=== PATIENT | female | born 2000 | race Hispanic/Latino ===

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

== ENCOUNTER 2018-05-11 15:45 | Emergency (ER) | payer OTHER ==
[2018-05-11 17:34] LABS: BASO % 0.4 % (0.0-1.0); EOS # 0.3 10^3/uL (0.0-0.50); EOS % 3.8 % (0.0-3.0); HEMATOCRIT 42.6 % (36.0-47.0); HEMOGLOBIN 13.9 g/dl (12.0-15.5); IMMATURE GRANULOCYTE % 0.3 % (0-3.0); LYMPH # 2.6 10^3/uL (1.5-6.5); LYMPH % 35.8 % (24.0-44.0); MEAN CORPUSCULAR HEMOGLOBIN 29.5 pg (27.0-33.0); MEAN CORPUSCULAR HGB CONC 32.6 g/dl (32.0-36.5); MEAN CORPUSCULAR VOLUME 90.4 fl (80.0-96.0); MONO # 0.4 10^3/uL (0.0-0.8); MONO % 5.7 % (0.0-5.0); PLATELET COUNT, AUTOMATED 405 10^3/uL (150-450); RED BLOOD COUNT 4.71 10^6/uL (4.00-5.40); WHITE BLOOD COUNT 7.4 10^3/uL (4.0-10.0)
[2018-05-11 17:56] LABS: ALBUMIN 4.2 GM/DL (3.2-5.2); ALBUMIN/GLOBULIN RATIO 1.27 (1.00-1.93); ALKALINE PHOSPHATASE 91 U/L (45-117); ALT/SGPT 21 U/L (12-78); ANION GAP 7 MEQ/L (8-16); AST/SGOT 11 U/L (7-37); BILIRUBIN,DIRECT 0.2 MG/DL (0.0-0.2); BILIRUBIN,TOTAL 0.4 MG/DL (0.2-1.0); BLOOD UREA NITROGEN 11 MG/DL (7-18); CALCIUM LEVEL 9.6 MG/DL (8.5-10.1); CARBON DIOXIDE LEVEL 28 MEQ/L (21-32); CHLORIDE LEVEL 105 MEQ/L (98-107); CPK CREATINE PHOSPHOKINASE 103 U/L (26-192); CREATININE FOR GFR 0.66 MG/DL (0.55-1.30); FREE T4 0.88 NG/DL (0.78-1.33); GLUCOSE, FASTING 82 MG/DL (70-100); LIPASE 145 U/L (73-393); MB/CK RELATIVE INDEX 0.97 (< OR =4); POTASSIUM SERUM 4.6 MEQ/L (3.5-5.1); SODIUM LEVEL 140 MEQ/L (136-145); TOTAL PROTEIN 7.5 GM/DL (6.4-8.2); TROPONIN I < 0.02 NG/ML (< 0.10)
== END 2018-05-11 18:26 | disposition home or self-care (01) ==
LOC: M ED 15:45
DX: M94.0 Chondrocostal junction syndrome [Tietze] (principal)
CPT/HCPCS: 71046

== ENCOUNTER 2018-08-03 14:06 | Emergency (ER) | payer OTHER ==
[~2018-08-03] VITALS: Ht 127 cm; Wt 62.7 kg
[~2018-08-03 14:06] MED LIST: ACET1TAB55 PO; AMOX500C; HYDROCODONE-ACETAMIN; IBUP-1022; IBUP200T45 PO; IBUP80TA PO; NAPR-885; PEPC1TAB5 PO; PERI12LIQ; ZOFR4TAB14 PO; [UNRECOGNIZED DRUG - CODE] PO
[2018-08-03 15:16] LABS: URINE PREG TEST NEGATIVE (NEGATIVE)
[2018-08-03] MEDS ORDERED: CIPR-249 PO (16:07)
[2018-08-03] MEDS ORDERED: PYRI1TAB5 PO (16:07)
[2018-08-03 16:19] VITALS: BP 104/63
[2018-08-03 16:33] LABS: HEPATITIS B SURFACE ANTIBODY POSITIVE (POSITIVE); HEPATITIS B SURFACE ANTIGEN NEGATIVE (NEGATIVE); HEPATITIS C VIRUS ABY INDEX 0.1 INDEX (<0.8); HIV 1&2 SCREEN CENTAUR NEGATIVE (NEGATIVE)
[2018-08-03 17:20] LABS: CHLAMYDIA DNA AMPLIFICATION NEGATIVE (NEGATIVE); GC DNA AMPLIFICATION NEGATIVE (NEGATIVE)
== END 2018-08-03 16:21 | disposition home or self-care (01) ==
LOC: M ED 14:06
DX: N30.90 Cystitis, unspecified without hematuria (principal); F33.9 Major depressive disorder, recurrent, unspecified

== ENCOUNTER 2018-08-30 21:29 | Emergency (ER) | payer OTHER ==
[~2018-08-30] VITALS: Ht 147.3 cm; Wt 62.3 kg
[~2018-08-30 21:29] MED LIST changes: +CIPR-249 PO; +PYRI1TAB5 PO
[2018-08-30 22:25] LABS: URINE PREG TEST NEGATIVE (NEGATIVE)
[2018-08-30 23:10] LABS: BASO % 0.4 % (0.0-1.0); EOS # 0.3 10^3/uL (0.0-0.50); EOS % 3.3 % (0.0-3.0); HEMATOCRIT 39.7 % (36.0-47.0); HEMOGLOBIN 13.1 g/dl (12.0-15.5); LYMPH # 2.9 10^3/uL (1.5-6.5); LYMPH % 29.2 % (24.0-44.0); MEAN CORPUSCULAR HEMOGLOBIN 29.7 pg (27.0-33.0); MONO # 0.8 10^3/uL (0.0-0.8); MONO % 8.2 % (0.0-5.0); NEUTROPHILS # 5.9 10^3/uL (1.8-7.7); NEUTROPHILS % 58.7 % (36.0-66.0); PLATELET COUNT, AUTOMATED 353 10^3/uL (150-450); RED BLOOD COUNT 4.41 10^6/uL (4.00-5.40)
[2018-08-30 23:35] LABS: ALBUMIN 3.7 GM/DL (3.2-5.2); ALT/SGPT 20 U/L (12-78); BILIRUBIN,DIRECT < 0.1 MG/DL (0.0-0.2); BILIRUBIN,TOTAL 0.2 MG/DL (0.2-1.0); BLOOD UREA NITROGEN 13 MG/DL (7-18); CALCIUM LEVEL 8.6 MG/DL (8.5-10.1); CARBON DIOXIDE LEVEL 28 MEQ/L (21-32); CHLORIDE LEVEL 104 MEQ/L (98-107); CREATININE FOR GFR 0.78 MG/DL (0.55-1.30); GLUCOSE, FASTING 78 MG/DL (70-100); LIPASE 208 U/L (73-393); POTASSIUM SERUM 3.9 MEQ/L (3.5-5.1); SODIUM LEVEL 139 MEQ/L (136-145); TOTAL PROTEIN 6.9 GM/DL (6.4-8.2)
[2018-08-31] MEDS: GASTROGRAFIN SOLUTION 30ML PO SCH ×2 (01:45→02:15)
--- NOTE | 2018-08-31 03:02 | REPVR ---
EXAM: CT Abdomen and Pelvis Without Contrast EXAM DATE/TIME: 08/31/2018 1:43 AM CLINICAL HISTORY: 18 years old, female; Abdominal pain; Flank; Left; Additional info: Left colic TECHNIQUE: Axial computed tomography images of the abdomen and pelvis without contrast. All CT scans at this facility use at least one of these dose optimization techniques: automated exposure control; mA and/or kV adjustment per patient size (includes targeted exams where dose is matched to clinical indication); or iterative reconstruction. Coronal and sagittal reformatted images were created and reviewed. COMPARISON: CT ABD/PEL W/IV ORAL CONTRAST 12/08/2017 4:54 AM US PELVIC NON-OB COMPLETE 12/08/2017 3:29:34 AM FINDINGS: Lower thorax: Unremarkable. ABDOMEN: Liver: Unremarkable. No liver lesion is seen. The contour of the liver is smooth. No hepatomegaly is noted. Gallbladder and bile ducts: No calcifications are seen in the gallbladder to suggest calculi. No gallbladder wall thickening, pericholecystic fluid, or pericholecystic inflammatory changes are identified. No dilation of the intrahepatic or extrahepatic bile ducts is noted. Pancreas: Unremarkable. No ductal dilation. Spleen: Unremarkable. No splenomegaly. Adrenals: Normal. No mass. Kidneys and ureters: The kidneys are unremarkable. No renal lesion is identified. No calculi are seen in the kidneys or ureters. There is no hydronephrosis or hydroureter. Stomach and bowel: There is no evidence for a bowel obstruction, diverticulosis, diverticulitis, colitis, pneumatosis intestinalis, intussusception, volvulus, or perforated viscus. Appendix: There are no findings to suggest acute appendicitis. PELVIS: Bladder: The partially distended urinary bladder is unremarkable. No stones or masses are seen in the bladder. Reproductive: The anteverted uterus and ovaries are unremarkable. ABDOMEN and PELVIS: Intraperitoneal space: There is a small amount of free fluid in the cul-de-sac. No intra-abdominal abscess or intraperitoneal free air is noted. Bones/joints: The imaged bony structures are intact. There is no suspicious osteolytic or osteoblastic lesion. Incidental note is made of a small bone island in the left femoral head, which is unchanged compared to the prior CT scan on 12/08/2017. Soft tissues: Unremarkable. Vasculature: No abdominal aortic aneurysm. Lymph nodes: Normal. No enlarged lymph nodes. IMPRESSION: 1. No acute findings in the abdomen or pelvis. No stones in the kidneys, ureters, or urinary bladder. No hydronephrosis or hydroureter. 2. Small amount of free fluid in the cul-de-sac. Electronically signed by: Vaibhav Soto On 08/31/2018 03:01:54 AM
[2018-08-31] MEDS ORDERED: AZITHROMYCIN 250 MG TAB PO ONE (03:30)
[2018-08-31] MEDS ORDERED: cefTRIAXone SOD 1 GM VIAL (J0696) IM ONE (03:30)
[2018-08-31] MEDS ORDERED: LIDOCAINE 1% SDV 5 ML VIAL DILUENT ONE (03:30)
[2018-08-31 03:37] VITALS: BP 92/50
[2018-08-31] MEDS ORDERED: NORCO 5/325MG TABLET (BULK FOR ED) PO ONE (03:45)
[2018-08-31 04:44] LABS: CHLAMYDIA DNA AMPLIFICATION NEGATIVE (NEGATIVE); GC DNA AMPLIFICATION NEGATIVE (NEGATIVE)
== END 2018-08-31 04:07 | disposition home or self-care (01) ==
LOC: M ED 21:29
DX: N70.91 Salpingitis, unspecified (principal)
CPT/HCPCS: 36415; 74176; 80048; 80076; 81001; 83690; 84703; 85025; 87210; 87491; 87591; 96372; 99284; J0696; Q9963

== ENCOUNTER 2018-09-21 17:37 | Emergency (ER) | payer OTHER ==
[~2018-09-21] VITALS: Ht 147.3 cm; Wt 62.7 kg
[2018-09-21 17:38] VITALS: BP 120/62
[2018-09-21] MEDS ORDERED: PRENTAB56 (17:52)
[2018-09-21] MEDS ORDERED: raNITIdine SYRUP 150 MG/10 ML UDC PO ONE (19:15)
[2018-09-21] MEDS ORDERED: METOCLOPRAMIDE 10 MG TAB PO ONE (19:15)
[2018-09-21 19:26] LABS: BASO % 0.2 % (0.0-1.0); EOS # 0.2 10^3/uL (0.0-0.50); EOS % 2.4 % (0.0-3.0); HEMATOCRIT 39.9 % (36.0-47.0); HEMOGLOBIN 13.3 g/dl (12.0-15.5); LYMPH % 30.1 % (24.0-44.0); MEAN CORPUSCULAR HEMOGLOBIN 29.7 pg (27.0-33.0); MEAN CORPUSCULAR HGB CONC 33.3 g/dl (32.0-36.5); MEAN CORPUSCULAR VOLUME 89.1 fl (80.0-96.0); MONO # 0.7 10^3/uL (0.0-0.8); MONO % 7.1 % (0.0-5.0); NEUTROPHILS # 5.9 10^3/uL (1.8-7.7); PLATELET COUNT, AUTOMATED 387 10^3/uL (150-450); RED BLOOD COUNT 4.48 10^6/uL (4.00-5.40); WHITE BLOOD COUNT 9.9 10^3/uL (4.0-10.0)
[2018-09-21] MEDS ORDERED: RANI15TA PO (20:19)
[2018-09-21 21:32] LABS: CHLAMYDIA DNA AMPLIFICATION NEGATIVE (NEGATIVE); GC DNA AMPLIFICATION NEGATIVE (NEGATIVE)
== END 2018-09-21 20:26 | disposition home or self-care (01) ==
LOC: M ED 17:37
DX: O26.891 Other specified pregnancy related conditions, first trimester (principal); R10.2 Pelvic and perineal pain; O99.511 Diseases of the respiratory system complicating pregnancy, first trimester; J45.909 Unspecified asthma, uncomplicated; Z3A.01 Less than 8 weeks gestation of pregnancy

== ENCOUNTER 2018-10-18 20:53 | Emergency (ER) | payer OTHER ==
[~2018-10-18] VITALS: Ht 147.3 cm; Wt 64.1 kg
[~2018-10-18 20:53] MED LIST changes: +PRENTAB56; +RANI15TA PO
[2018-10-19] MEDS ORDERED: RHOGAM 300 MCG (1500 IU) INJ (J2790) IM ONE (00:15)
[2018-10-19 00:54] VITALS: BP 116/70
--- NOTE | 2018-10-19 01:18 | REPVR ---
EXAM: US Duplex Artery and Vein of the Reproductive Organs. Complete Ovaries EXAM DATE/TIME: 10/18/2018 11:53 PM CLINICAL HISTORY: 18 years old, female; Signs and symptoms; Lmp or gestational age (in weeks): 8 w 6d; Antepartum complications; Bleeding; ; Additional info: Vaginal bleeding TECHNIQUE: Imaging protocol: Real-time duplex ultrasound scan of the arterial and venous flow with color Doppler flow and spectral waveform analysis. Complete duplex exam focused on the ovaries. Duplex exam was added to evaluate for ovarian torsion or mass. COMPARISON: No relevant prior studies available. FINDINGS: Right adnexa: The arterial and venous color Doppler flow and spectral waveforms within the right ovary are within normal limits. No right ovarian torsion. Left adnexa: The arterial and venous color Doppler flow and spectral waveforms within the left ovary are within normal limits. No left ovarian torsion. IMPRESSION: Normal ovarian arterial and venous vascular flow. No evidence ovarian torsion. EXAM: US First Trimester, Transabdominal and US , Transvaginal EXAM DATE/TIME: 10/18/2018 11:53 PM CLINICAL HISTORY: 18 years old, female; Signs and symptoms; Lmp or gestational age (in weeks): 8 w 6d; Antepartum complications; Bleeding; ; Additional info: Vaginal bleeding TECHNIQUE: Imaging protocol: Real-time transabdominal obstetrical ultrasound of the maternal pelvis and a first trimester , less than 14 weeks 0 days, with image documentation. Transvaginal imaging was used for better evaluation of the fetus and adnexa. COMPARISON: No relevant prior studies available. FINDINGS: Last menstrual period: 08/17/2018 GESTATION: Gestation: There is a single intrauterine gestation. The yolk sac was not visualized from the images obtained. Heart rate: 180 beats per minute Placenta: Unremarkable. No subchorionic bleed. Amniotic fluid: Amniotic and chorionic fluid are normal for gestational age. BIOMETRY: Estimated gestational age: 8 weeks 5 days [place]-Rump length: 2.07 cm Estimated due date: 05/25/2019 MATERNAL: Uterus: The uterus is anteverted. No myometrial mass is seen. Cervix: The cervix is closed. Right adnexa: The right ovary is normal in appearance and measures 2.9 cm x 1.6 cm x 2.6 cm. No right ovarian cyst or right adnexal mass is noted. The arterial and venous color Doppler flow and spectral waveforms within the right ovary are within normal limits, without evidence for right ovarian torsion. Left adnexa: The left ovary is normal in appearance and measures 3 cm x 2.4 cm x 2.5 cm. No left ovarian cyst or left adnexal mass is noted. The arterial and venous color Doppler flow and spectral waveforms within the left ovary are within normal limits, without evidence for left ovarian torsion. Intraperitoneal: No free fluid is seen from the images obtained. IMPRESSION: 1. Single viable intrauterine with an estimated gestational age of 8 weeks 5 days and estimated due date on 05/25/2019. A second trimester obstetrical ultrasound is recommended at 19-20 weeks gestation for a detailed anatomical survey. 2. No subchronic hemorrhage or acute sonographic findings in the pelvis. Electronically signed by: Vaibhav Soto On 10/19/2018 01:18:16 AM
[2018-10-19 02:02] LABS: CHLAMYDIA DNA AMPLIFICATION NEGATIVE (NEGATIVE); GC DNA AMPLIFICATION NEGATIVE (NEGATIVE)
== END 2018-10-19 00:55 | disposition home or self-care (01) ==
LOC: M ED 20:53
DX: O99.89 Other specified diseases and conditions complicating pregnancy, childbirth and the puerperium (principal); N93.0 Postcoital and contact bleeding; O20.0 Threatened abortion; O99.511 Diseases of the respiratory system complicating pregnancy, first trimester; Z3A.08 8 weeks gestation of pregnancy; Z79.899 Other long term (current) drug therapy
CPT/HCPCS: 76801; 76817; 84702; 86850; 86901; 87210; 87491; 87591; 93976; 96372; 99284; J2790

== ENCOUNTER 2019-01-30 18:05 | Outpatient (CLI) | payer OTHER ==
[~2019-01-30] VITALS: Ht 147.3 cm; Wt 69.2 kg
[2019-01-30] MEDS ORDERED: ZOLO50TA PO (18:26)
[2019-01-30 18:33] VITALS: BP 122/72
== END 2019-01-30 19:17 | disposition home or self-care (01) ==
LOC: M LDO 18:05
PROVIDERS: ATTEND Obstetrics & Gynecology
DX: O26.892 Other specified pregnancy related conditions, second trimester (principal); R07.9 Chest pain, unspecified; Z3A.23 23 weeks gestation of pregnancy
CPT/HCPCS: 59025; G0378; G0463

== ENCOUNTER 2019-04-12 02:46 | Outpatient (CLI) | payer OTHER ==
[~2019-04-12] VITALS: Ht 172.7 cm; Wt 74.8 kg
[~2019-04-12 02:46] MED LIST changes: +ZOLO50TA PO
[2019-04-12 02:49] VITALS: BP 115/77
--- NOTE | 2019-04-12 03:57 | IPNPDOC ---
Text Note Date of Service The patient was seen on 04/12/19. NOTE OB Considerations: - Amol Brooke is a 19yo G1 at 34+0wks (YOHANNES [id number]) presents for cramping, nausea, and diarrhea x 48 hrs. She reports that her spouse was sick recently with similar symptoms. She reports that she has presents because of the cramping, con stant for last 24 hrs. She reports stuff nose as well. Denies fever, vomiting. She is able to drink water. She reports that she has been drinking 2 16oz bottles of water in a day. She reports bowel movements x3 -4 times in a day. She denies ctx, VB, LOF. Reports active movement. VS: reviewed, normotensive, nontachycardic, afebrile GEN: WNWD, NAD CV: RRR RESP: CTAB ABD: Soft, Gravid, NT EXT: no edema DCE: closed, thick/soft, high FHR: Reactive, 130bpm, moderate variability, + Accelerations, - Decelerations TOCO: Quiet A/P: SIUP at 34wks with likely viral gastroenteritis (given recent sick contact) and nasal congestion. No concern for PTL, closed cervical exam and quiet toco, PO tolerant. RNST. Discussed conservative methods of increasing hydration (at least 100ml water/day), discussed Gatorade or Pedialyte, Tylenol 1000mg q6hrs PRN (not to exceed 3000mg in 24hrs) and discussed Mucinex OTC and Nasal Saline. - Discussed strict return precautions, PTL precautions - Discussed kick counts - Discussed hydration - Follow up for 36wks appointment DO KATJA Pires CRYSTAL B. DO Apr 12, 2019 03:56
== END 2019-04-12 03:30 | disposition home or self-care (01) ==
LOC: M LDO 02:46
PROVIDERS: ATTEND Obstetrics & Gynecology
DX: O99.89 Other specified diseases and conditions complicating pregnancy, childbirth and the puerperium (principal); Z3A.34 34 weeks gestation of pregnancy; K52.9 Noninfective gastroenteritis and colitis, unspecified
CPT/HCPCS: 59025; G0378; G0463

== ENCOUNTER 2020-03-19 14:51 | Emergency (ER) | payer BC, OTHER ==
[~2020-03-19] VITALS: Ht 147.3 cm; Wt 66.8 kg
[2020-03-19] MEDS ORDERED: OCUF0.25 OP (17:11)
[2020-03-19 17:53] VITALS: BP 114/60
== END 2020-03-19 17:55 | disposition home or self-care (01) ==
LOC: M ED 14:51
DX: H10.31 Unspecified acute conjunctivitis, right eye (principal); J45.909 Unspecified asthma, uncomplicated; F33.9 Major depressive disorder, recurrent, unspecified; F41.9 Anxiety disorder, unspecified

== ENCOUNTER 2020-04-18 18:14 | Emergency (ER) | payer BC, OTHER ==
[~2020-04-18] VITALS: Ht 157.5 cm; Wt 68.2 kg
[~2020-04-18 18:14] MED LIST changes: +OCUF0.25 OP
[2020-04-18 19:06] LABS: BASO # 0.1 10^3/uL (0.0-0.2); BASO % 0.7 % (0.0-1.0); EOS # 0.5 10^3/uL (0.0-0.5); EOS % 7.1 % (0.0-3.0); HEMOGLOBIN 13.5 g/dl (12.0-15.5); LYMPH # 2.6 10^3/uL (1.5-5.0); MEAN CORPUSCULAR HEMOGLOBIN 27.9 pg (27.0-33.0); MEAN CORPUSCULAR HGB CONC 32.1 g/dl (32.0-36.5); MEAN CORPUSCULAR VOLUME 86.8 fl (80.0-96.0); MONO # 0.5 10^3/uL (0.0-0.8); MONO % 6.4 % (0.0-5.0); NEUTROPHILS # 3.6 10^3/uL (1.5-8.5); NEUTROPHILS % 49.7 % (36.0-66.0); PLATELET COUNT, AUTOMATED 415 10^3/uL (150-450); RED BLOOD COUNT 4.84 10^6/uL (4.00-5.40); WHITE BLOOD COUNT 7.2 10^3/uL (4.0-10.0)
[2020-04-18 19:32] LABS: ALBUMIN 3.8 GM/DL (3.2-5.2); ALT/SGPT 29 U/L (12-78); BILIRUBIN,DIRECT < 0.1 MG/DL (0.0-0.2); BILIRUBIN,TOTAL 0.3 MG/DL (0.2-1.0); BLOOD UREA NITROGEN 11 MG/DL (7-18); CALCIUM LEVEL 9.1 MG/DL (8.5-10.1); CARBON DIOXIDE LEVEL 26 MEQ/L (21-32); CHLORIDE LEVEL 107 MEQ/L (98-107); CREATININE FOR GFR 0.64 MG/DL (0.55-1.30); GLOMERULAR FILTRATION RATE > 60.0 (>60); GLUCOSE, FASTING 80 MG/DL (70-100); LIPASE 147 U/L (73-393); SODIUM LEVEL 139 MEQ/L (136-145); TOTAL PROTEIN 7.7 GM/DL (6.4-8.2)
[2020-04-18 19:34] LABS: HCG, SERUM QUALITATIVE NEGATIVE (NEGATIVE)
[2020-04-18] MEDS ORDERED: GI COCKTAIL 50ML BTL(HYOSCYAMINE/MAALOX/LIDOCAINE VISCOUS)(1:3:1) PO ONE (21:30)
[2020-04-18 23:15] VITALS: BP 90/62
== END 2020-04-18 23:32 | disposition home or self-care (01) ==
LOC: M ED 18:14
DX: R10.9 Unspecified abdominal pain (principal)

== ENCOUNTER → 2020-06-17 | Outpatient (CLI) | payer BC, OTHER ==
[2020-06-17 16:13] LABS: FREE T4 1.01 NG/DL (0.76-1.46); THYROID STIMULATING HORMONE 1.84 uIU/ML (0.358-3.740)
== END ==
LOC: M LAB 11:47
PROVIDERS: ATTEND Internal Medicine Gastroenterology
DX: R10.13 Epigastric pain (principal)

== ENCOUNTER → 2020-08-29 | Outpatient (CLI) | payer BC, OTHER ==
--- NOTE | 2020-08-29 11:22 | REP ---
INDICATION: OTHER SPECIFIED DISEASE OF GALLBLADDER, NAUSEA. COMPARISON: Comparison abdominal CT study August 31, 2018.. TECHNIQUE/RADIOTRACER AND DOSE: 6.6 mCi of Technetium-99m mebrofenin was injected and sequential anterior images are acquired. 65 minutes after the mebrofenin injection, the patient consumed 8 ounces Ensure and an additional 60 minutes of imaging was acquired. Regions of interest are plotted around the gallbladder. FINDINGS: The initial hepatocellular parenchymal uptake phase is normal and homogeneous. Intra- and extra-hepatic bile ducts are labeled by the 10-minute image. The gallbladder is first labeled on the 10-minute image. There is normal washout from the liver parenchyma into the gallbladder and small intestine on subsequent images. The gallbladder ejection fraction is 80%. Values greater than 35% are considered normal with this technique. IMPRESSION: Normal hepatobiliary scan and normal gallbladder ejection fraction. <Electronically signed by Luis Lyons > 08/29/20 [id number]
== END ==
LOC: M RAD 08:54
PROVIDERS: ATTEND Internal Medicine Gastroenterology
DX: K82.8 Other specified diseases of gallbladder (principal)

== ENCOUNTER 2020-10-28 11:24 | Day surgery (SDC) | payer BC, OTHER ==
[~2020-10-28] VITALS: Ht 147.3 cm; Wt 65.7 kg
[~2020-10-28 11:24] MED LIST changes: +NS 1,000 ML IV ONE
[2020-10-28] MEDS ORDERED: fentaNYL 100 MCG/2 ML INJECTION (J3010) As Ordered ONE (11:43)
[2020-10-28] MEDS ORDERED: LIDOCAINE 2% 100MG/5ML SDV (FOR ANES.) As Ordered ONE (11:43)
[2020-10-28] MEDS ORDERED: propofoL 200 MG/20 ML VIAL As Ordered ONE (11:43)
--- NOTE | 2020-10-28 14:14 | ROOR ---
Patient Name: Mendy Thurman Procedure Date: 10/28/2020 2:01 PM Date of : 2000 Age: 20 Room: [facility] Gender: Female Note Status: Finalized Procedure: Upper GI endoscopy Indications: Generalized abdominal pain Providers: Derik ROGERS MD Referring MD: NIK ZARAGOZA MD Requesting Provider: Medicines: Monitored Anesthesia Care Complications: No immediate complications. Procedure: Pre-Anesthesia Assessment: - The heart rate, respiratory rate, oxygen saturations, blood pressure, adequacy of pulmonary ventilation, and response to care were monitored throughout the procedure. The Endoscope was introduced through the mouth, and advanced to the third part of duodenum. The upper GI endoscopy was accomplished without difficulty. The patient tolerated the procedure well. Findings: The esophagus was normal. The stomach was normal. The examined duodenum was normal. Impression: - Normal esophagus. - Normal stomach. - Normal examined duodenum. - No specimens collected. Recommendation: - Observe patient's clinical course. Procedure Code(s): --- Professional --- 88934, Esophagogastroduodenoscopy, flexible, transoral; diagnostic, including collection of specimen(s) by brushing or washing, when performed (separate procedure) Diagnosis Code(s): --- Professional --- R10.84, Generalized abdominal pain CPT copyright 2019 [employer]. All rights reserved. The codes documented in this report are preliminary and upon booking police officer review may be revised to meet current compliance requirements. Derik Rogers MD Derik ROGERS MD 10/28/2020 2:13:50 PM Electronically signed by Derik ROGERS MD Number of Addenda: 0 Note Initiated On: 10/28/2020 2:01 PM Estimated Blood Loss: Estimated blood loss: none.
--- NOTE | 2020-10-28 14:33 | ROOR ---
Patient Name: Mendy Thurman Procedure Date: 10/28/2020 2:01 PM Date of : 2000 Age: 20 Room: [facility] Gender: Female Note Status: Finalized Procedure: Colonoscopy Indications: Generalized abdominal pain, Change in bowel habits Providers: Derik ROGERS MD Referring MD: NIK ZARAGOZA MD Requesting Provider: Medicines: Monitored Anesthesia Care Complications: No immediate complications. Procedure: Pre-Anesthesia Assessment: - The heart rate, respiratory rate, oxygen saturations, blood pressure, adequacy of pulmonary ventilation, and response to care were monitored throughout the procedure. The Colonoscope was introduced through the anus and advanced to 10 cm into the ileum. The colonoscopy was performed without difficulty. The patient tolerated the procedure well. The quality of the bowel preparation was good. Findings: The perianal and digital rectal examinations were normal. The terminal ileum appeared normal. The colon (entire examined portion) appeared normal. Impression: - The examined portion of the ileum was normal. - The entire examined colon is normal. - No specimens collected. - (Irritable Bowel Syndrome/IBS suspected.) Recommendation: - Continue present medications. - Use fiber, for example Citrucel, Fibercon, Konsyl or Metamucil. Procedure Code(s): --- Professional --- 93204, Colonoscopy, flexible; diagnostic, including collection of specimen(s) by brushing or washing, when performed (separate procedure) Diagnosis Code(s): --- Professional --- R19.4, Change in bowel habit R10.84, Generalized abdominal pain CPT copyright 2019 [employer]. All rights reserved. The codes documented in this report are preliminary and upon charcoal unloader review may be revised to meet current compliance requirements. Derik Rogers MD Derik ROGERS MD 10/28/2020 2:33:18 PM Electronically signed by Derik ROGERS MD Number of Addenda: 0 Note Initiated On: 10/28/2020 2:01 PM Estimated Blood Loss: Estimated blood loss: none.
[2020-10-28 15:00] VITALS: BP 134/68
== END 2020-10-28 15:11 | disposition home or self-care (01) ==
LOC: M OPP 11:24
PROVIDERS: ATTEND Internal Medicine Gastroenterology
DX: R10.84 Generalized abdominal pain (principal); R19.4 Change in bowel habit
CPT/HCPCS: 43235; 45378; J3010